=== PATIENT | female | born 1995 | race Two or more races ===

== ENCOUNTER 2024-02-02 11:13 | Emergency (ER) | payer OTHER ==
[~2024-02-02] VITALS: Ht 154.9 cm; Wt 106.6 kg
[2024-02-02] MEDS ORDERED: PRENA1 TRUE CO1 EACH PO (12:05)
[2024-02-02 13:49] LABS: HEMATOCRIT 36.2 % (36.0-45.00); HEMOGLOBIN 12.4 g/dL (12.0-15.00); MEAN CORPUSCULAR HEMOGLOBIN 30.2 pg (27.00-32.0); MEAN CORPUSCULAR HGB CONC 34.3 g/dl (32.0-36.0); PLATELET COUNT 372 K/uL (150-450); RED BLOOD COUNT 4.12 M/uL (4.00-6.00); RED CELL DISTRIBUTION WIDTH 13.2 % (11.5-14.5)
[2024-02-02 15:20] LABS: CALCIUM 8.9 mg/dL (8.5-10.1); CREATININE SERUM 0.67 mg/dL (0.55-1.02); GFR 104.06; POTASSIUM 4.12 mEq/L (3.5-5.1)
== END 2024-02-02 16:06 | disposition home or self-care (01) ==
LOC: ER 11:14
PROVIDERS: General Practice
DX: O46.8X1 Other antepartum hemorrhage, first trimester (principal); Z88.6 Allergy status to analgesic agent

== ENCOUNTER 2024-04-26 16:28 | Emergency (ER) | payer OTHER ==
[~2024-04-26] VITALS: Ht 154.9 cm; Wt 113.4 kg
[~2024-04-26 16:28] MED LIST: PRENA1 TRUE CO1 EACH PO
[2024-04-26 18:02] LABS: HEMATOCRIT 34.3 % (36.0-45.00); HEMOGLOBIN 11.6 g/dL (12.0-15.00); MEAN CELL VOLUME 90.5 fL (80.00-100.00); MEAN CORPUSCULAR HEMOGLOBIN 30.7 pg (27.00-32.0); MEAN CORPUSCULAR HGB CONC 33.9 g/dl (32.0-36.0); PLATELET COUNT 359 K/uL (150-450); RED BLOOD COUNT 3.79 M/uL (4.00-6.00); RED CELL DISTRIBUTION WIDTH 13.3 % (11.5-14.5)
[2024-04-26 19:05] LABS: URINE APPEARANCE Cloudy; URINE BILIRRUBIN Negative (NEGATIVE); URINE BLOOD Negative; URINE COLOR Yellow; URINE KETONE Negative (NEGATIVE); URINE LEUKOCYTE Small; URINE NITRATE Negative; URINE PROTEIN Negative (NEGATIVE); URINE UROBILINOGEN 0.2 E.U./dl
[2024-04-26 19:09] LABS: URINE BACTERIA 4833.1 uL (0.0-1933); URINE EPITHELIAL CELLS 25.9 uL (0.0-38.8); URINE RBC 11.9 uL (0.0-20.8)
[2024-04-26 19:37] LABS: URINE CAST 0.44 uL (0.0-1.40); URINE GLUCOSE >=1000 MG/DL (NEGATIVE)
[2024-04-26 19:38] LABS: URINE MUCUS SCANT; URINE YEAST FEW /hpf
[2024-04-26] MEDS ORDERED: MACRODANTIN100 MG PO (19:46)
[2024-04-26] MEDS ORDERED: MONISTAT 745 GM VAG (19:46)
== END 2024-04-26 19:52 | disposition home or self-care (01) ==
LOC: ER 16:31
PROVIDERS: General Practice
DX: O20.9 Hemorrhage in early pregnancy, unspecified (principal); O23.42 Unspecified infection of urinary tract in pregnancy, second trimester; N39.0 Urinary tract infection, site not specified; Z3A.18 18 weeks gestation of pregnancy; Z88.6 Allergy status to analgesic agent; Z91.018 Allergy to other foods; Z91.013 Allergy to seafood

== ENCOUNTER 2024-06-15 11:57 | Emergency (ER) | payer OTHER ==
[~2024-06-15] VITALS: Ht 154.9 cm; Wt 114.3 kg
[~2024-06-15 11:57] MED LIST changes: +MACRODANTIN100 MG PO; +MONISTAT 745 GM VAG
[2024-06-15 15:14] LABS: MEAN CORPUSCULAR HEMOGLOBIN 31.2 pg (27.00-32.0); MEAN CORPUSCULAR HGB CONC 34.3 g/dl (32.0-36.0); PLATELET COUNT 417 K/uL (150-450); RED BLOOD COUNT 4.18 M/uL (4.00-6.00); RED CELL DISTRIBUTION WIDTH 12.7 % (11.5-14.5)
[2024-06-15 15:52] LABS: PH,URINE 5.5 (5.0-8.0); URINE APPEARANCE Clear; URINE BILIRRUBIN Negative (NEGATIVE); URINE BLOOD Negative; URINE COLOR Yellow; URINE GLUCOSE Negative (NEGATIVE); URINE KETONE Negative (NEGATIVE); URINE LEUKOCYTE Moderate; URINE NITRATE Negative; URINE PROTEIN Negative (NEGATIVE); URINE UROBILINOGEN 0.2 E.U./dl
[2024-06-15 15:57] LABS: URINE BACTERIA 9802.5 uL (0.0-1933); URINE EPITHELIAL CELLS 73.6 uL (0.0-38.8); URINE RBC 3.2 uL (0.0-20.8); URINE WBC 152.6 uL (0.0-23.2)
[2024-06-15 16:02] LABS: URINE CAST 0.44 uL (0.0-1.40)
[2024-06-15] MEDS ORDERED: CEPHALEXIN500 MG PO (16:21)
[2024-06-15] MEDS ORDERED: CEFTRIAXONE SODIUM 1,000 MG VIAL ONE (16:26)
[2024-06-15] MEDS ORDERED: LIDOCAINE HCL 1% 10ML VIAL ONE (16:27)
[2024-06-15] MEDS ORDERED: CEFTRIAXONE SODIUM 1,000 MG VIAL IM ONE (16:30)
== END 2024-06-15 16:33 | disposition home or self-care (01) ==
LOC: ER 11:59
PROVIDERS: Emergency Medicine
DX: Z34.90 Encounter for supervision of normal pregnancy, unspecified, unspecified trimester (principal); N39.0 Urinary tract infection, site not specified; R10.9 Unspecified abdominal pain; Z3A.25 25 weeks gestation of pregnancy; Z88.6 Allergy status to analgesic agent; Z91.013 Allergy to seafood; Z91.018 Allergy to other foods

== ENCOUNTER 2024-07-18 09:41 | Emergency (ER) | payer OTHER ==
[~2024-07-18] VITALS: Ht 154.9 cm; Wt 115.2 kg
[~2024-07-18 09:41] MED LIST changes: +CEPHALEXIN500 MG PO
[2024-07-18] MEDS ORDERED: FAMOTIDINE/PF 20 MG/2 ML VIAL IV ONE (13:00)
[2024-07-18] MEDS ORDERED: RINGERS SOLUTION,LACTATED 1,000 ML IV ONE (13:00)
[2024-07-18] MEDS ORDERED: ONDANSETRON HCL 2 MG/ML VIAL IV ONE (13:00)
[2024-07-18] MEDS ORDERED: ONDANSETRON HCL 2 MG/ML VIAL ONE (13:09)
[2024-07-18] MEDS ORDERED: FAMOTIDINE/PF 20 MG/2 ML VIAL ONE (13:10)
[2024-07-18 13:48] LABS: HEMATOCRIT 36.5 % (36.0-45.00); HEMOGLOBIN 12.6 g/dL (12.0-15.00); MEAN CELL VOLUME 89.8 fL (80.00-100.00); MEAN CORPUSCULAR HGB CONC 34.5 g/dl (32.0-36.0); PLATELET COUNT 370 K/uL (150-450); RED BLOOD COUNT 4.06 M/uL (4.00-6.00); RED CELL DISTRIBUTION WIDTH 12.6 % (11.5-14.5)
[2024-07-18 13:59] LABS: CALCIUM 9.1 mg/dL (8.5-10.1); CREATININE SERUM 0.48 mg/dL (0.55-1.02); GFR 152.9; POTASSIUM 3.79 mEq/L (3.5-5.1)
== END 2024-07-18 16:08 | disposition home or self-care (01) ==
LOC: ER 09:42
PROVIDERS: General Practice
DX: O21.9 Vomiting of pregnancy, unspecified (principal); Z3A.30 30 weeks gestation of pregnancy; R51.9 Headache, unspecified; Z20.822 Contact with and (suspected) exposure to COVID-19; Z88.6 Allergy status to analgesic agent; Z91.013 Allergy to seafood; Z91.018 Allergy to other foods

== ENCOUNTER 2024-09-08 08:45 | Inpatient (IN) | payer OTHER ==
[~2024-09-08] VITALS: Ht 154.9 cm; Wt 3.2 kg
[2024-09-08 10:38] LABS: BASO % 0.5 % (0.1-1.2); EOS # 0.22 (0.04-0.54); EOS % 5.1 % (0.7-7.0); HEMATOCRIT 32.8 % (34.1-44.9); HEMOGLOBIN 10.9 g/dL (11.2-15.7); LYMPH # 1.76 (1.18-3.74); LYMPH % 40.9 % (19.3-53.1); MEAN CORPUSCULAR HEMOGLOBIN 29.7 pg (25.6-32.2); MONO # 0.41 (0.24-0.82); MONO % 9.5 % (4.7-12.5); NEUT # 1.87 (1.56-6.13); NEUT % 43.5 % (34.0-71.1); PLATELET COUNT 338 K/uL (163-369); RED BLOOD COUNT 3.67 M/uL (3.93-5.22)
[2024-09-08 10:52] LABS: PH,URINE 6.5 (5.0-8.0); URINE APPEARANCE Clear; URINE BILIRRUBIN Negative (NEGATIVE); URINE BLOOD Negative; URINE COLOR Yellow; URINE GLUCOSE Negative (NEGATIVE); URINE KETONE Negative (NEGATIVE); URINE LEUKOCYTE Large; URINE NITRATE Negative; URINE PROTEIN Negative (NEGATIVE); URINE UROBILINOGEN 0.2 E.U./dl
[2024-09-08 10:59] LABS: INR < 0.93; PARTIAL THROMBOPLASTIN TIME 27.1 SECONDS (22.0-34.0)
[2024-09-08 10:59] LABS: URINE BACTERIA 3917.9 uL (0.0-1933); URINE EPITHELIAL CELLS 75.6 uL (0.0-38.8); URINE RBC 4.7 uL (0.0-20.8); URINE WBC 97.9 uL (0.0-23.2)
[2024-09-08 11:39] LABS: URINE CAST 0.14 uL (0.0-1.40)
[2024-09-08 11:58] LABS: ALBUMIN 2.1 gm/dL (3.4-5.0); BILIRUBIN TOTAL 0.29 mg/dL (0.3-1.2); CALCIUM 8.3 mg/dL (8.5-10.1); CREATININE SERUM 0.5 mg/dL (0.55-1.02); GFR 144.87; GLOBULINA 3.5 G/DL (2.4-3.5); POTASSIUM 4.44 mEq/L (3.5-5.1); TOTAL PROTEIN 5.6 gm/dL (6.4-8.2)
[2024-09-15 05:39] VITALS: BP 125/84
[2024-09-15] MEDS ORDERED: PRENATAL TABLE1 EAC1 PO (05:52)
[2024-09-15] MEDS ORDERED: OXYTOCIN 10 UNITS/ML VIAL ONE (07:22)
[2024-09-15] MEDS ORDERED: ERYTHROMYCIN BASE OPHT 1GM EACH TUBE OP ONE (07:22)
[2024-09-15] MEDS ORDERED: CEFAZOLIN SODIUM 1,000 MG VIAL ONE (07:28)
[2024-09-15] MEDS ORDERED: MORPHINE SULFATE 4 MG/ML VIAL IV PRN (10:00)
[2024-09-15] MEDS ORDERED: RINGERS SOLUTION,LACTATED 1,000 ML IV SCH (10:00)
[2024-09-15] MEDS ORDERED: MORPHINE SULFATE 4 MG/ML VIAL IV ONE (12:00)
[2024-09-15 13:35] VITALS: BP 131/80
[2024-09-15] MEDS ORDERED: CEFAZOLIN SODIUM 1,000 MG VIAL IV SCH (14:00)
[2024-09-15 16:00] VITALS: BP 128/84
[2024-09-15 23:53] VITALS: BP 132/91
[2024-09-16 01:52] LABS: BASO % 0.2 % (0.1-1.2); EOS # 0.07 (0.04-0.54); EOS % 0.8 % (0.7-7.0); HEMATOCRIT 31.1 % (34.1-44.9); HEMOGLOBIN 10.6 g/dL (11.2-15.7); LYMPH # 1.33 (1.18-3.74); LYMPH % 14.5 % (19.3-53.1); MEAN CORPUSCULAR HEMOGLOBIN 30.4 pg (25.6-32.2); MONO # 0.59 (0.24-0.82); MONO % 6.4 % (4.7-12.5); NEUT # 7.13 (1.56-6.13); NEUT % 77.7 % (34.0-71.1); PLATELET COUNT 282 K/uL (163-369); RED BLOOD COUNT 3.49 M/uL (3.93-5.22); RED CELL DISTRIBUTION WIDTH 12.4 % (11.6-14.4)
[2024-09-16 08:06] VITALS: BP 130/80
[2024-09-16] MEDS ORDERED: OxyCODONE HCL 5 MG TABLET (ROXICODONE) PO PRN (09:00)
[2024-09-16 11:07] VITALS: BP 125/88
[2024-09-16 14:07] VITALS: BP 126/88
[2024-09-16 16:40] VITALS: BP 122/82
[2024-09-17 01:01] VITALS: BP 128/86
[2024-09-17 08:32] VITALS: BP 130/90
[2024-09-17 16:00] VITALS: BP 117/80
[2024-09-18 00:31] VITALS: BP 139/90
[2024-09-18 08:00] VITALS: BP 139/80
== END 2024-09-18 10:44 | disposition home or self-care (01) | DRG 785 ==
LOC: O/R 09-15 05:11 → LDR 09-15 07:00 → OB/GYN 09-15 11:26
PROVIDERS: ADMIT Specialist; ATTEND Specialist
PROC: 0UB70ZZ Excision of Bilateral Fallopian Tubes, Open Approach (ICD-10-PCS; 2024-09-15)
PROC: 4A1HXCZ Monitoring of Products of Conception, Cardiac Rate, External Approach (ICD-10-PCS; 2024-09-15)
PROC: 10D00Z1 Extraction of Products of Conception, Low, Open Approach (ICD-10-PCS; principal; 2024-09-15 07:00)
DX: O34.211 Maternal care for low transverse scar from previous cesarean delivery (principal); Z30.2 Encounter for sterilization; Z37.0 Single live birth; Z3A.38 38 weeks gestation of pregnancy

== ENCOUNTER 2025-01-21 10:26 | Emergency (ER) | payer OTHER ==
[~2025-01-21] VITALS: Ht 154.9 cm; Wt 114.3 kg
[~2025-01-21 10:26] MED LIST changes: +PRENATAL TABLE1 EAC1 PO
[2025-01-21] MEDS ORDERED: ACETAMINOPHEN 500 MG GEL..CAP PO ONE ×2 (11:00→11:03)
[2025-01-21] MEDS ORDERED: BENZONATATE 100 MG CAPSULE PO ONE (11:00)
[2025-01-21] MEDS ORDERED: CETIRIZINE HCL 5 MG/5 ML ML PO ONE (11:00)
[2025-01-21] MEDS ORDERED: CETIRIZINE HCL 5MG/5ML BLIST.PACK PO ONE (11:03)
[2025-01-21 11:25] LABS: BASO % 0.4 % (0.1-1.2); EOS # 0.32 (0.04-0.54); EOS % 7.0 % (0.7-7.0); LYMPH # 1.11 (1.18-3.74); LYMPH % 24.4 % (19.3-53.1); MEAN PLATELET VOLUME 9.20 fl (9.4-12.4); MONO # 0.28 (0.24-0.82); MONO % 6.2 % (4.7-12.5); NEUT # 2.78 (1.56-6.13); NEUT % 61.3 % (34.0-71.1); RED CELL DISTRIBUTION WIDTH 11.9 % (11.6-14.4)
[2025-01-21 11:59] LABS: BUN CREA RATIO 15.0 (7.0-25.0); CREATININE SERUM 0.59 mg/dL (0.55-1.02); GFR 119.68; GLUCOSE FASTING 104.0 mg/dL (65-100); OSMOLALITY SERUM 282.0 MOSM/KG (275-295)
[2025-01-21 12:09] LABS: COVID-19 AG NEGATIVE (NEGATIVE)
[2025-01-21] MEDS ORDERED: TYLENOL ARTHRI650 MG PO (12:38)
[2025-01-21] MEDS ORDERED: BENZONATATE200 M1 PO (12:38)
[2025-01-21] MEDS ORDERED: ZYRTEC10 M3 PO (12:38)
== END 2025-01-21 13:48 | disposition home or self-care (01) ==
LOC: ER 10:26
PROVIDERS: General Practice
DX: J98.8 Other specified respiratory disorders (principal); B34.9 Viral infection, unspecified; J00 Acute nasopharyngitis [common cold]; Z91.013 Allergy to seafood; Z91.040 Latex allergy status; Z88.6 Allergy status to analgesic agent; Z91.018 Allergy to other foods; Z20.822 Contact with and (suspected) exposure to COVID-19